=== PATIENT | female | born 1970 | race Two or more races ===

== ENCOUNTER 2021-04-26 16:50 | Emergency (ER) | payer OTHER, MEDICAID ==
[~2021-04-26] VITALS: Ht 170.2 cm; Wt 79.1 kg
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
--- NOTE | 2021-04-26 17:26 | NUR ---
ERP AT BS
[2021-04-26] MEDS ORDERED: HYDROmorphone 1 MG/ML, 1ML INJ IV ONE ×2 (17:30→19:00)
[2021-04-26] MEDS ORDERED: HYDROmorphone 2 MG/ML, 1ML ONE ×2 (17:31→18:37)
--- NOTE | 2021-04-26 17:39 | NUR ---
XRAY AT BS
[2021-04-26] MEDS ORDERED: PLEASE ENTER ALLERGIES MC SCH (18:00)
[2021-04-26] MEDS ORDERED: KETOROLAC 30 MG/1 ML ONE (18:37)
[2021-04-26] MEDS ORDERED: KETOROLAC 15 MG/1ML IVPush ONE (19:00)
[2021-04-26 19:26] VITALS: BP 149/87
== END 2021-04-26 19:31 | disposition home or self-care (01) ==
LOC: ED 17:20
DX: S82.841A Displaced bimalleolar fracture of right lower leg, initial encounter for closed fracture (principal); I10 Essential (primary) hypertension; W01.0XXA Fall on same level from slipping, tripping and stumbling without subsequent striking against object, initial encounter; Y93.89 Activity, other specified; Y92.009 Unspecified place in unspecified non-institutional (private) residence as the place of occurrence of the external cause; Y99.8 Other external cause status
CPT/HCPCS: 29515; 73610; 96374; 96375; 96376; 99284; J1170; J1885